=== PATIENT | female | born 1940 | race Caucasian/White ===

== ENCOUNTER 2016-12-03 20:29 | Inpatient (IN) | payer MEDICARE, OTHER ==
[~2016-12-03] VITALS: Ht 162.6 cm; Wt 79.9 kg
[~2016-12-03 20:29] MED LIST: BACT800T5 PO; LEVO100T4 PO
[2016-12-03] MEDS ORDERED: SODIUM CHLOR 0.9% 1000 ML INJ 1,000 ML IV SCH (22:06)
--- NOTE | 2016-12-03 22:12 | PD ---
HPI Chief Complaint: AMS Time Seen by Provider: 22:11 Travel History International Travel<30 days: No Contact w/Intl Traveler<30days: No History of Present Illness HPI 76-year-old female presents to the emergency department via EMS for evaluation of altered mental status. Apparently, the patient was found naked on her front porch. Her house is disheveled and unlivable. Apparently EMS states that EMS was called out last week and she was taken to another hospital. Apparently, she was discharged. The patient lives alone. The patient is alert. She is oriented to self only. The patient states that she has no medical problems and takes no medications. However, the patient is not a reliable historian. She denies any complaints at this time. The patient denies any headache. No chest or shortness breath. No abdominal pain. No nausea, vomiting, diarrhea. Patient is disheveled. She has dirt on on her legs and her arms. PFSH Past Medical History Genitourinary: Yes (urinary incontinence) Thyroid Disease: Yes Social History Alcohol Use: Yes (BEER DAILY) Tobacco Use: No Substance Use: No Allergies-Medications (Allergen,Severity, Reaction): Coded Allergies: No Known Allergies (Unverified , 03/04/16) Reported Meds & Prescriptions Reported Meds & Active Scripts Active Bactrim DS (Sulfamethoxazole-Trimethoprim DS) 1 Tab Tab 1 Tab PO BID 5 Days Reported Levothyroxine 100 mcg (Levothyroxine Sodium) 100 Mcg Tab 100 Mcg PO DAILY Review of Systems Except as stated in HPI: all other systems reviewed are Neg Physical Exam Narrative GENERAL: Well-nourished, well-developed female patient, afebrile. Patient is alert and oriented to self only. SKIN: Focused skin assessment warm/dry. Patient is disheveled with dirt on her extremities. HEAD: Normocephalic. Atraumatic. EYES: No scleral icterus. No injection or drainage. NECK: Supple, trachea midline. No JVD or lymphadenopathy. CARDIOVASCULAR: Regular rate and rhythm without murmurs, gallops, or rubs. RESPIRATORY: Breath sounds equal bilaterally. No accessory muscle use. Lungs sounds are clear to auscultation. GASTROINTESTINAL: Abdomen soft, non-tender, nondistended. MUSCULOSKELETAL: No cyanosis, or edema. Patient follows commands. Bilateral upper and lower extremity strength 5/5. All extremities are neurovascularly intact. BACK: Nontender without obvious deformity. No CVA tenderness. Data Data Orders Electrocardiogram (12/03/16 22:06) Ammonia (12/03/16 22:06) Complete Blood Count With Diff (12/03/16 22:06) Comprehensive Metabolic Panel (12/03/16 22:06) Creatine Kinase (Cpk) (12/03/16 22:06) Prothrombin Time / Inr (Pt) (12/03/16 22:06) Act Partial Throm Time (Ptt) (12/03/16 22:06) Troponin I (12/03/16 22:) Urinalysis - C+S If Indicated (12/03/16 22:06) Lactic Acid Sepsis Protocol (12/03/16 22:06) Blood Culture (12/03/16 22:) Chest, Single Ap (12/03/16 22:) Ct Brain W/O Iv Contrast(Rout) (12/03/16 22:06) Blood Glucose (12/03/16 22:06) Ecg Monitoring (12/03/16 22:) Iv Access Insert/Monitor (12/03/16 22:06) Oximetry (12/03/16 22:06) Sodium Chloride 0.9% Flush (Ns Flush) (12/03/16 22:15) Sodium Chlor 0.9% 1000 Ml Inj (Ns 1000 M (12/03/16 22:06) Drug Screen, Random Urine (12/03/16 22:06) Alcohol (Ethanol) (12/03/16 22:06) Cath For Specimen (12/03/16 22:06) Magnesium (Mg) (12/03/16 22:06) MDM Medical Decision Making Medical Screen Exam Complete: Yes Emergency Medical Condition: Yes Medical Record Reviewed: Yes Interpretation(s) chest x-ray - CONCLUSION: Normal examination. Differential Diagnosis Intracranial abnormality versus electrolyte abnormality versus pneumonia versus sepsis versus UTI versus dehydration Narrative Course 76-year-old female presents to the emergency department via EMS for altered mental status. Patient is placed under [place] act by police. Patient is a poor historian and no family is available. EKG, CBC, CMP, CK, Troponin, Lactic acid , Ammonia, Magnesium, PTT, PT/INR, UA, UDS, alcohol level, chest x-ray, CT of the brain are ordered and pending. Patient is given NS 1 liter IV bolus. Chest x-ray is normal. Dr. Arreguin will resume care and disposition of patient. Michelle Robertson Dec 03, 2016 22:12
[2016-12-03] MEDS ORDERED: SODIUM CHLORIDE 0.9% FLUSH 5 ML FLUSH IV FLUSH PRN (22:15)
--- NOTE | 2016-12-03 22:34 | RADRPT ---
EXAM DATE/TIME: 12/03/2016 22:07 [facility] COMPARISON: No previous studies available for comparison. INDICATIONS : Altered mental status. MEDICAL HISTORY : None. SURGICAL HISTORY : None. ENCOUNTER: Initial ACUITY: 1 day PAIN SCORE: 0/10 LOCATION: Bilateral chest FINDINGS: A single view of the chest demonstrates the lungs to be symmetrically aerated without evidence of mas s, infiltrate or effusion. The cardiomediastinal contours are unremarkable. Osseous structures are intact. CONCLUSION: Normal examination. Kentrell Key MD on December 03, 2016 at 22:32 Board Certified Radiologist. This report was verified electronically.
[2016-12-03 22:53] LABS: AUTOMATED NEUTROPHIL # 10.3 TH/MM3 (1.8-7.7); BASOPHIL # 0.1 TH/MM3 (0-0.2); BASOPHIL % 0.6 % (0.0-2.0); EOSINOPHIL # 0.2 TH/MM3 (0-0.4); EOSINOPHIL % 1.3 % (0.0-4.0); HEMATOCRIT 38.6 % (35.0-46.0); HEMO FLAGS DIFF FINAL; LYMPH % 12.6 % (9.0-44.0); LYMPHOCYTE # 1.7 TH/MM3 (1.0-4.8); MEAN CELL VOLUME 84.2 FL (80.0-100.0); MEAN CORPUSCULAR HEMOGLOBIN 27.6 PG (27.0-34.0); MEAN CORPUSCULAR HGB CONC 32.8 % (32.0-36.0); MONO % 9.6 % (0.0-8.0); NEUT % 75.9 % (16.0-70.0); PLATELET COUNT 292 TH/MM3 (150-450); RED BLOOD COUNT 4.58 MIL/MM3 (4.00-5.30); RED CELL DISTRIBUTION WIDTH 14.6 % (11.6-17.2); WHITE BLOOD COUNT 13.6 TH/MM3 (4.0-11.0)
[2016-12-03 23:02] LABS: AMPHETAMINE, URINE NEG (NEG); BARBITURATES, URINE NEG (NEG); COCAINE, URINE NEG (NEG)
[2016-12-03 23:04] LABS: APTT (PATIENT) 24.3 SEC (24.3-30.1)
[2016-12-03 23:12] LABS: BACTERIA, URINE MANY /hpf; BLOOD, URINE MOD (NEG); GLUCOSE,URINE NEG (NEG); HYALINE CAST, URINE 7 /lpf (RARE); KETONE, URINE 150 mg/dL (NEG); MUCUS URINE FEW /lpf (OCC); PH, URINE 5.5 (5.0-8.5); SQUAMOUS EPITHELIAL CELL URINE 2 /hpf (0-5); URINE COLOR YELLOW (YELLW/STRAW)
[2016-12-03 23:14] LABS: COMMENT (UR) CATH-CULTURE IND; CULTURE IF INDICATED CATH CULTURE IND; NITRITE,URINE POS (NEG)
[2016-12-03 23:15] LABS: ANION GAP 9 MEQ/L (5-15); AST (GOT) 42 U/L (15-37); BICARBONATE 22.8 MEQ/L (21.0-32.0); BLOOD UREA NITROGEN 22 MG/DL (7-18); CHLORIDE 109 MEQ/L (98-107); GLOMERULAR FILTRATION RATE 63 ML/MIN (>89); MAGNESIUM 2.2 MG/DL (1.5-2.5); POTASSIUM 4.4 MEQ/L (3.5-5.1); SODIUM (NA) 141 MEQ/L (136-145)
[2016-12-03 23:16] LABS: ALT (GPT) 33 U/L (10-53)
[2016-12-03 23:20] LABS: ALKALINE PHOSPHATASE 75 U/L (45-117); CREATINE KINASE 384 U/L (26-192); TOTAL BILIRUBIN ADULT 0.5 MG/DL (0.2-1.0)
[2016-12-03 23:22] VITALS: BP 138/66; PULSE 99; RESP 16; TEMP 98.5; O2SAT 99
[2016-12-03] MEDS ORDERED: LEVO100T5 PO (23:22)
[2016-12-03 23:36] LABS: CKMB 3.8 NG/ML (0.5-3.6)
[2016-12-03] MEDS ORDERED: cefTRIAXone INJ 1,000 MG in SODIUM CHLORIDE 0.9% INJ 100 ML IV ONE (23:45)
--- NOTE | 2016-12-03 23:45 | PD ---
Physical Exam Date Seen by Provider: Dec 03, 2016 Time Seen by Provider: 23:43 Narrative 76-year-old female came to the emergency room brought by EMS for being found naked outside her porch. Patient was confused but pleasant. She was covered in her own excreta and smelling bad. It did not look like she took care of herself very well for quite some time. Patient was seen by the nurse practitioner and I'm supervising her. Blood test results of back and UA and patient has leukocytosis and UTI. She is getting IV fluid and I have ordered 1 g of IV Rocephin. Patient needs to be admitted and then eventually be placed since currently does not seem like she is in a condition to take care of herself. There has not been any family member or friends who have come in. Awaiting for the hospitalist to call back. Data Data Last Documented VS Vital Signs Date Time Temp Pulse Resp B/P Pulse Ox O2 Delivery O2 Flow Rate FiO2 12/03/16 23:22 98.5 99 16 138/66 99 Orders Electrocardiogram (12/03/16 22:06) Ammonia (12/03/16 22:06) Complete Blood Count With Diff (12/03/16 22:06) Comprehensive Metabolic Panel (12/03/16 22:06) Creatine Kinase (Cpk) (12/03/16 22:06) Prothrombin Time / Inr (Pt) (12/03/16 22:06) Act Partial Throm Time (Ptt) (12/03/16 22:06) Troponin I (12/03/16 22:06) Urinalysis - C+S If Indicated (12/03/16 22:06) Lactic Acid Sepsis Protocol (12/03/16 22:06) Blood Culture (12/03/16 22:06) Chest, Single Ap (12/03/16 22:06) Ct Brain W/O Iv Contrast(Rout) (12/03/16 22:06) Blood Glucose (12/03/16 22:06) Ecg Monitoring (12/03/16 22:06) Iv Access Insert/Monitor (12/03/16 22:06) Oximetry (12/03/16 22:06) Sodium Chloride 0.9% Flush (Ns Flush) (12/03/16 22:15) Sodium Chlor 0.9% 1000 Ml Inj (Ns 1000 M (12/03/16 22:06) Drug Screen, Random Urine (12/03/16 22:06) Alcohol (Ethanol) (12/03/16 22:06) Cath For Specimen (12/03/16 22:06) Magnesium (Mg) (12/03/16 22:06) Urine Culture (12/03/16 22:30) CKMB (12/03/16 22:35) CKMB% (12/03/16 22:35) Ceftriaxone Inj (Rocephin Inj) (12/03/16 23:45) Admit Order (Ed Use Only) (12/03/16 23:56) Labs Laboratory Tests Test 12/03/16 12/03/16 22:30 22:35 Urine Opiates Screen NEG Urine Barbiturates Screen NEG Urine Amphetamines Screen NEG Urine Benzodiazepines Screen NEG Urine Cocaine Screen NEG Urine Cannabinoids Screen NEG Urine Color YELLOW Urine Turbidity CLOUDY Urine pH 5.5 Urine Specific Lam[place] 1.025 Urine Protein 100 mg/dL Urine Glucose (UA) NEG mg/dL Urine Ketones 150 mg/dL Urine Occult Blood MOD Urine Nitrite POS Urine Bilirubin NEG Urine Urobilinogen LESS THAN 2.0 MG/DL Urine Leukocyte Esterase LARGE Urine RBC 49 /hpf Urine WBC /hpf Urine WBC Clumps MANY Urine Squamous Epithelial 2 /hpf Cells Urine Bacteria MANY /hpf Urine Hyaline Casts 7 /lpf Urine Mucus FEW /lpf Microscopic Urinalysis Comment CATH-CULTURE IND Prothrombin Time 11.0 SEC Prothromb Time International 1.0 RATIO Ratio Activated Partial 24.3 SEC Thromboplast Time Sodium Level 141 MEQ/L Potassium Level 4.4 MEQ/L Chloride Level 109 MEQ/L Carbon Dioxide Level 22.8 MEQ/L Anion Gap 9 MEQ/L Blood Urea Nitrogen 22 MG/DL Creatinine 0.88 MG/DL Estimat Glomerular Filtration 63 ML/MIN Rate Random Glucose 90 MG/DL Lactic Acid Level 1.3 mmol/L Calcium Level 8.9 MG/DL Magnesium Level 2.2 MG/DL Total Bilirubin 0.5 MG/DL Aspartate Amino Transf 42 U/L (AST/SGOT) Alanine Aminotransferase 33 U/L (ALT/SGPT) Alkaline Phosphatase 75 U/L Ammonia 12 MCMOL/L Total Creatine Kinase 384 U/L Creatine Kinase MB 3.8 NG/ML Creatine Kinase MB % 1.0 % Troponin I LESS THAN 0.02 NG/ML Total Protein 7.6 GM/DL Albumin 3.2 GM/DL Ethyl Alcohol Level LESS THAN 3 MG/DL White Blood Count 13.6 TH/MM3 Red Blood Count 4.58 MIL/MM3 Hemoglobin 12.6 GM/DL Hematocrit 38.6 % Mean Corpuscular Volume 84.2 FL Mean Corpuscular Hemoglobin 27.6 PG Mean Corpuscular Hemoglobin 32.8 % Concent Red Cell Distribution Width 14.6 % Platelet Count 292 TH/MM3 Mean Platelet Volume 8.3 FL Neutrophils (%) (Auto) 75.9 % Lymphocytes (%) (Auto) 12.6 % Monocytes (%) (Auto) 9.6 % Eosinophils (%) (Auto) 1.3 % Basophils (%) (Auto) 0.6 % Neutrophils # (Auto) 10.3 TH/MM3 Lymphocytes # (Auto) 1.7 TH/MM3 Monocytes # (Auto) 1.3 TH/MM3 Eosinophils # (Auto) 0.2 TH/MM3 Basophils # (Auto) 0.1 TH/MM3 CBC Comment DIFF FINAL Differential Comment Thyroid Stimulating Hormone 5.960 uIU/ML 3rd Gen [facility] Supervised Visit with SOBIA: Yes Diagnosis Primary Impression: UTI (urinary tract infection) Qualified Code: N39.0 - Urinary tract infection without hematuria, site unspecified Additional Impression: Altered mental status Qualified Code: R41.0 - Disorientation Admitting Information Admitting Physician Requests: Admit Scripts Walker with Front Wheels 1 Mis Mis #1 EA .ROUTE DIRECTED Ref 0 Prov:Darlene Martel MD R1 12/05/16 Ciprofloxacin 500 Mg [id number] Mg PO BID #10 TAB Ref 0 Prov:Darlene Martel MD R1 12/05/16 Jj Arreguin MD Dec 03, 2016 23:45
--- NOTE | 2016-12-03 23:55 | HHI.HP ---
[facility] Service Family Medicine Primary Care Physician Celine Mascorro MD Admission Diagnosis Diagnoses: International Travel<30 Days: No Contact w/Intl Traveler<30days: No Known Affected Area: No History of Present Illness Patient is a 76 year old female with past history of hypothyroidism who was brought to the ED (per ED note) by EMS after being found naked on her porch, covered in feces. She was confused when initially examined by ED physician. When examined by admitting team patient was A+Ox3 but took some effort to think of the correct answers. Patient was unsure why she was here tonight and did not recall what had occurred earlier to require her to be transported her. She complains of about 10 days of polyuria and dysuria with no report of hematuria. No complaint of pain in the back. She was scheduled to see her primary care provider Dr. Mascorro Sunday. No complaint of nausea, vomiting, fever, chills, headache, shortness of breath, chest pain, confusion, change in vision, weakness , or trouble walking. Review of Systems Constitutional: DENIES: Diaphoretic episodes, Fatigue, Fever, Chills, Dizziness , Change in appetite Endocrine: COMPLAINS OF: Polyuria, DENIES: Heat/cold intolerance, Polydipsia, Polyphagia Eyes: DENIES: Blurred vision, Diplopia, Eye inflammation, Eye pain, Vision loss , Photosensitivity, Double Vision Ears, nose, mouth, throat: DENIES: Nasal discharge, Oral lesions, Throat pain, Hoarseness, Ear Pain, Running Nose, Epistaxis, Sinus Pain Respiratory: COMPLAINS OF: Cough (Mild), DENIES: Apneas, Snoring, Wheezing, Hemoptysis, Sputum production, Shortness of breath Cardiovascular: DENIES: Chest pain, Palpitations, Syncope, Dyspnea on Exertion , PND, Lower Extremity Edema, Orthopnea, Claudication Gastrointestinal: DENIES: Abdominal pain, Black stools, Bloody stools, Constipation, Diarrhea, Nausea, Vomiting, Difficulty Swallowing, Anorexia Genitourinary: COMPLAINS OF: Urinary frequency, Dysuria, DENIES: Urgency, Hematuria Musculoskeletal: DENIES: Joint pain, Muscle aches Integumentary: DENIES: Rash Hematologic/lymphatic: DENIES: Bruising, Lymphadenopathy Neurologic: DENIES: Abnormal gait, Headache, Localized weakness, Speech Problems, Poor Balance Psychiatric: DENIES: Anxiety, Confusion, Agitation Past Family Social History Past Medical History Hypothyroidism Past Surgical History Right wrist surgery Lasik eye surgery Allergies: Coded Allergies: No Known Allergies (Unverified , 12/03/16) Family History None reported Social History drinks 1-2 beers or glasses of wine daily. Smoked 3 packs per day for 20 years, stopped 30 years ago Does not and has never used illicit drugs Physical Exam Vital Signs Vital Signs Date Time Temp Pulse Resp B/P Pulse Ox O2 Delivery O2 Flow Rate FiO2 12/03/16 23:22 98.5 99 16 138/66 99 Physical Exam GENERAL: This is a well-nourished, well-developed patient, in no apparent distress. SKIN: No rashes, ecchymoses or lesions. Cool and dry. Dry lips/mouth. HEAD: Atraumatic. Normocephalic. No temporal or scalp tenderness. EYES: Pupils equal round and reactive. Extraocular motions intact. No scleral icterus. No injection or drainage. ENT: Nose without bleeding, purulent drainage or septal hematoma. Throat without erythema, tonsillar hypertrophy or exudate. Uvula midline. Airway patent. NECK: Trachea midline. No JVD or lymphadenopathy. Supple, nontender, no meningeal signs. CARDIOVASCULAR: Regular rate and rhythm without murmurs, gallops, or rubs. Normal S1/S2 RESPIRATORY: Clear to auscultation. Breath sounds equal bilaterally. No wheezes , rales, or rhonchi. BACK: No costovertebral tenderness. GASTROINTESTINAL: Positive bowel sounds, abdomen soft, non-tender, nondistended. No hepato-splenomegaly, or palpable masses. No guarding. MUSCULOSKELETAL: Extremities without clubbing, cyanosis, or edema. No joint tenderness, effusion, or edema noted. No calf tenderness. NEUROLOGICAL: Awake and alert. Cranial nerves II through XII intact. Motor and sensory grossly within normal limits. Five out of 5 muscle strength in all muscle groups. Normal speech. Laboratory Laboratory Tests Test 12/03/16 12/03/16 22:30 22:35 Urine Color YELLOW Urine Turbidity CLOUDY Urine pH 5.5 Urine Specific [place] 1.025 Urine Protein 100 Urine Glucose (UA) NEG Urine Ketones 150 Urine Occult Blood MOD Urine Nitrite POS Urine Bilirubin NEG Urine Urobilinogen LESS THAN 2.0 Urine Leukocyte Esterase LARGE Urine RBC 49 Urine WBC Urine WBC Clumps MANY Urine Squamous Epithelial 2 Cells Urine Bacteria MANY Urine Hyaline Casts 7 Urine Mucus FEW Microscopic Urinalysis Comment CATH-CULTURE IND Urine Opiates Screen NEG Urine Barbiturates Screen NEG Urine Amphetamines Screen NEG Urine Benzodiazepines Screen NEG Urine Cocaine Screen NEG Urine Cannabinoids Screen NEG White Blood Count 13.6 Red Blood Count 4.58 Hemoglobin 12.6 Hematocrit 38.6 Mean Corpuscular Volume 84.2 Mean Corpuscular Hemoglobin 27.6 Mean Corpuscular Hemoglobin 32.8 Concent Red Cell Distribution Width 14.6 Platelet Count 292 Mean Platelet Volume 8.3 Neutrophils (%) (Auto) 75.9 Lymphocytes (%) (Auto) 12.6 Monocytes (%) (Auto) 9.6 Eosinophils (%) (Auto) 1.3 Basophils (%) (Auto) 0.6 Neutrophils # (Auto) 10.3 Lymphocytes # (Auto) 1.7 Monocytes # (Auto) 1.3 Eosinophils # (Auto) 0.2 Basophils # (Auto) 0.1 CBC Comment DIFF FINAL Differential Comment Prothrombin Time 11.0 Prothromb Time International 1.0 Ratio Activated Partial 24.3 Thromboplast Time Sodium Level 141 Potassium Level 4.4 Chloride Level 109 Carbon Dioxide Level 22.8 Anion Gap 9 Blood Urea Nitrogen 22 Creatinine 0.88 Estimat Glomerular Filtration 63 Rate Random Glucose 90 Lactic Acid Level 1.3 Calcium Level 8.9 Magnesium Level 2.2 Total Bilirubin 0.5 Aspartate Amino Transf 42 (AST/SGOT) Alanine Aminotransferase 33 (ALT/SGPT) Alkaline Phosphatase 75 Ammonia 12 Total Creatine Kinase 384 Creatine Kinase MB 3.8 Creatine Kinase MB % 1.0 Troponin I LESS THAN 0.02 Total Protein 7.6 Albumin 3.2 Ethyl Alcohol Level LESS THAN 3 Date/Time Procedure Status Source Growth 12/03/16 22:35 Aerobic Blood Culture Received Blood Peripheral Pending 12/03/16 22:35 Anaerobic Blood Culture Received Blood Peripheral Pending 12/03/16 22:30 Urine Culture Received Urine Clean Catch Pending Result Diagram: 12/03/16223412/03/162234 Assessment and Plan Assessment and Plan 76 year old female with history of hypothyroidism transported to the ED by EMS following being found naked and confused. Currently A+Ox3 but requires some effort when thinking of answers. Complained of dysuria and polyuria for 10 days. No nausea, vomiting, fever, chills, headache, change in vision, weakness, chest pain, shortness of breath. UA cloudy, +nitrite, Large LE. Normal CXR, CT Head. Code Status Full Problem List: (1) UTI (urinary tract infection) Status: Acute Plan: - Rocephin 1G Q24 - F/U Urine culture - F/U CBC - F/U BMP (2) Altered mental status Status: Acute Plan: - F/U CBC, BMP - F/U blood culture - Neuro checks q4 (3) Hypothyroidism Status: Chronic Plan: - FU TSH - Levothyroxine (4) FEN Status: Acute Plan: On maintenance fluids @ 115mls/hr Correct electrolytes as needed Full diet DVT prophylaxis - Lovenox Physician Certification 2 Midnight Certification Type: Admission for Inpatient Services Order for Inpatient Services The services are ordered in accordance with Medicare regulations or non- Medicare payer requirements, as applicable. In the case of services not specified as inpatient-only, they are appropriately provided as inpatient services in accordance with the 2-midnight benchmark. Estimated LOS (days): 2 2 days is the estimated time the patient will need to remain in the hospital, assuming treatment plan goals are met and no additional complications. Post-Hospital Plan: Home Problem Qualifiers (1) UTI (urinary tract infection): Qualified Code: N39.0 - Urinary tract infection without hematuria, site unspecified (2) Altered mental status: Qualified Code: R41.0 - Disorientation (3) Hypothyroidism: Qualified Code: E03.9 - Hypothyroidism, unspecified type Segun Tracy MD R1 Dec 03, 2016 23:55
[2016-12-04] VITALS (8 sets, daily range): BP systolic 142–157; BP diastolic 76–98; PULSE 86–99; RESP 17–18; TEMP 97.3–97.8; O2SAT 94–98
[2016-12-04] MEDS ORDERED: ONDANSETRON HCL 4 MG/2 ML VIAL IVP PRN (00:15)
[2016-12-04] MEDS ORDERED: ACETAMINOPHEN 325 MG TAB PO PRN (00:15)
[2016-12-04] MEDS ORDERED: NALOXONE HCL 0.4 MG/ML AMP IV PRN (00:15)
[2016-12-04] MEDS ORDERED: LACTULOSE SYRUP 20 GM/30 ML CUP PO PRN (00:15)
[2016-12-04] MEDS ORDERED: SODIUM CHLORIDE 0.9% FLUSH 10 ML FLUSH IV FLUSH PRN (00:15)
[2016-12-04] MEDS ORDERED: MAGNESIUM HYDROXIDE SUSP 30 ML CUP PO PRN (00:15)
[2016-12-04] MEDS ORDERED: BISACODYL 10 MG SUPP RECTAL PRN (00:15)
[2016-12-04] MEDS ORDERED: SENNOSIDES 8.6 MG TAB PO PRN (00:15)
--- NOTE | 2016-12-04 00:16 | RADRPT ---
EXAM DATE/TIME: 12/04/2016 00:04 [facility] COMPARISON: CT BRAIN W/O CONTRAST, March 04, 2016, 2:02. INDICATIONS : Altered mental status. RADIATION DOSE: 31.39 CTDIvol (mGy) MEDICAL HISTORY : Non-responsive. SURGICAL HISTORY : Non-responsive. ENCOUNTER: Initial ACUITY: 1 day PAIN SCALE: Non-responsive LOCATION: cranial TECHNIQUE: Multiple contiguous axial images were obtained of the head. Using automated exposure control and adj ustment of the mA and/or kV according to patient size, radiation dose was kept as low as reasonably a chievable to obtain optimal diagnostic quality images. DICOM format image data is available electro nically for review and comparison. FINDINGS: There is marked central and cortical atrophy with dilatation of ventricular and sulcal spaces. There is no parenchymal hemorrhage, acute infarction or mass lesion identified. There are no extra-axial fluid collections appreciated. The posterior fossa is unremarkable with midline fourth ventricle. T he portion of the orbits and paranasal sinuses visualized are unremarkable. CONCLUSION: Normal examination for a patient of this age. No interval change since February 2016. Kentrell Key MD on December 04, 2016 at 0:14 Board Certified Radiologist. This report was verified electronically.
[2016-12-04] MEDS: SODIUM CHLOR 0.9% 1000 ML INJ 1,000 ML IV SCH ×3 (00:41→18:26)
[2016-12-04] MEDS: ENOXAPARIN SODIUM 40 MG/0.4 ML SYRINGE SQ SCH (00:42)
[2016-12-04] MEDS: LEVOTHYROXINE SODIUM 100 MCG TAB PO SCH (05:47)
[2016-12-04] MEDS: DOCUSATE SODIUM 50 MG/SENNA 8.6 MG TAB PO SCH ×2 (08:44→21:26)
[2016-12-04] MEDS: SODIUM CHLORIDE 0.9% FLUSH 10 ML FLUSH IV FLUSH SCH ×2 (08:44→21:00)
--- NOTE | 2016-12-04 09:03 | HHI.FPPN ---
Subjective Remarks Daniela Nieto is a 76yo lady with h/o hypothyroidism and 02/2016 UTI with pansensitive E coli admitted for altered mental status after being found naked and covered in feces on her porch. She reported a 10 day history of urinary symptoms, with dysuria and increased frequency. No fevers. For further details, please see resident H&P. This morning, she reports she is feeling better. Dysuria has resolved. She understands that she was admitted for UTI. She knows name and place, but believes date is December 03, 2015. She then speaks about a recent admission to a mental health facility which can not be verified. ROS: No fevers, no chills. No nausea/vomiting. Dysuria has resolved. All other systems reviewed are negative. PMH/PSxH/SocHx/FamHx: Per resident H&P. Significant for: Hypothyroidism. UTI in 02/2016 positive for pansensitive E coli. R wrist surgery, lasik eye surgery. She denies family history of significance. Drinks 1-2 alcoholic drinks per day ( beer or wine); 60 pack year smoking hx, but quit 30 years ago. No recreational drug use. [place] Objective Vitals Vital Signs Date Time Temp Pulse Resp B/P Pulse Ox O2 Delivery O2 Flow Rate FiO2 12/04/16 04:42 97.7 86 17 146/76 96 12/04/16 01:30 97.3 95 17 154/78 96 12/04/16 00:38 98 12/03/16 23:22 98.5 99 16 138/66 99 I/O 12/03/16 12/03/16 12/03/16 12/04/16 12/04/16 12/04/16 07:00 15:00 23:00 07:00 15:00 23:00 Intake Total 240 ml Balance 240 ml Intake Oral 240 ml # Voids 2 Result Diagram: 12/03/16223412/03/162234 Objective Remarks GENERAL: in NAD, no resp distress, nontoxic. Sitting comfortably at bedside. HEENT: NCAT, EOMI, no scleral icterus, no conjunctival injection. MMM. NECK: Supple, no meningeal signs. CV: RRR, S1 S2. No murmurs. CHEST/PULM: CTAB, no crackles, no wheezes ABD/GI: +BS, soft, nontender, nondistended. EXT: 2+ DP pulses. No calf tenderness. No significant edema. NEURO: Awake, alert. Normal muscle tone. Alert and oriented x 2 (person and place) SKIN: No rashes, no jaundice. PSYCH: Mood and affect are appropriate. : No CVAT. A/P Assessment and Plan 76 year old female with history of hypothyroidism transported to the ED by EMS following being found naked and confused. Currently A+Ox3 but requires some effort when thinking of answers. Complained of dysuria and polyuria for 10 days. No nausea, vomiting, fever, chills, headache, change in vision, weakness, chest pain, shortness of breath. UA cloudy, +nitrite, Large LE. Normal CXR, CT Head. Attending Attestation Patient seen, examined, and discussed with resident team. The patient has been seen and examined. The chart and all resident notes have been reviewed. I agree that inpatient care is appropriate and that a two midnight stay is expected for the reasons documented in the resident history and physical. I have discussed this with the resident and certify the resident s order for inpatient admission. Problem List: (1) UTI (urinary tract infection) Status: Acute Plan: - Rocephin 1Gram Q24 12/03/16 --> - Await Urine culture - Lactic acid reassuring (2) Altered mental status Status: Acute Plan: Mental status is improving. Likely secondary to UTI. Continue to monitor. (3) Hypothyroidism Status: Chronic Plan: - TSH mildly elevated, but may be secondary to acute illness. - Levothyroxine - continue at home dose. Once acute illness is resolved, patient may benefit from recheck of TSH as an outpatient to ensure proper dosing of her thyroid replacement Problem Qualifiers (1) UTI (urinary tract infection): Qualified Code: N39.0 - Urinary tract infection without hematuria, site unspecified (2) Altered mental status: Qualified Code: R41.0 - Disorientation (3) Hypothyroidism: Qualified Code: E03.9 - Hypothyroidism, unspecified type Vani Ramirez MD Dec 04, 2016 09:03 unspecified (2) Altered mental status: Qualified Code: R41.0 - Disorientation (3) Hypothyroidism: Qualified Code: E03.9 - Hypothyroidism, unspecified type Vani Ramirez MD Dec 04, 2016 09:03 (2) Altered mental status: Qualified Code: R41.0 - Disorientation (3) Hypothyroidism: Qualified Code: E03.9 - Hypothyroidism, unspecified type Vani Ramirez MD Dec 04, 2016 09:03 Status: Acute Plan: On maintenance fluids @ 115mls/hr Correct electrolytes as needed Full diet DVT prophylaxis - Lovenox Problem Qualifiers (1) UTI (urinary tract infection): Qualified Code: N39.0 - Urinary tract infection without hematuria, site unspecified (2) Altered mental status: Qualified Code: R41.0 - Disorientation (3) Hypothyroidism: Qualified Code: E03.9 - Hypothyroidism, unspecified type Vani Ramirez MD Dec 04, 2016 09:03
--- NOTE | 2016-12-04 09:11 | HHI.DCPOC ---
Discharge Care Plan Diagnosis: (1) Altered mental status (2) UTI (urinary tract infection) (3) Hypothyroidism Goals to Promote Your Health * To prevent worsening of your condition and complications * To maintain your health at the optimal level Directions to Meet Your Goals Take your medications as prescribed Follow your dietary instruction Follow activity as directed Keep your appointments as scheduled Take your immunizations and boosters as scheduled If your symptoms worsen call your PCP, if no PCP go to Urgent Care Center or Emergency Room Smoking is Dangerous to Your Health. Avoid second hand smoke Call the 24-hour hour crisis hotline for domestic abuse at Jeny Theodore MD R2 Dec 04, 2016 09:11
--- NOTE | 2016-12-04 13:13 | EKG ---
Date Performed: 12/03/2016 Time Performed: 23:35:37 PTAGE: 76 years EKG: Sinus rhythm NORMAL ECG NO PREVIOUS TRACING DOCTOR: Baltazar Sims Interpretating Date/Time 12/04/2016 13:11:08
[2016-12-04] MEDS ORDERED: cefTRIAXone INJ 1,000 MG in SODIUM CHLORIDE 0.9% INJ 100 ML IV SCH (22:00)
[2016-12-05] MEDS: ENOXAPARIN SODIUM 40 MG/0.4 ML SYRINGE SQ SCH (00:11)
[2016-12-05 00:20] VITALS: BP 136/67; PULSE 83; RESP 17; TEMP 97.1; O2SAT 98
[2016-12-05] MEDS: LEVOTHYROXINE SODIUM 100 MCG TAB PO SCH (06:24)
[2016-12-05 08:00] VITALS: BP 154/95; PULSE 96; RESP 18; TEMP 96.3; O2SAT 100
[2016-12-05 08:51] LABS: AUTOMATED NEUTROPHIL # 4.3 TH/MM3 (1.8-7.7); BASOPHIL % 0.7 % (0.0-2.0); EOSINOPHIL # 0.4 TH/MM3 (0-0.4); HEMATOCRIT 35.5 % (35.0-46.0); HEMO FLAGS DIFF FINAL; LYMPH % 25.1 % (9.0-44.0); LYMPHOCYTE # 1.9 TH/MM3 (1.0-4.8); MEAN CELL VOLUME 84.5 FL (80.0-100.0); MEAN CORPUSCULAR HEMOGLOBIN 28.5 PG (27.0-34.0); MEAN CORPUSCULAR HGB CONC 33.7 % (32.0-36.0); NEUT % 58.2 % (16.0-70.0); PLATELET COUNT 249 TH/MM3 (150-450); RED CELL DISTRIBUTION WIDTH 14.9 % (11.6-17.2); WHITE BLOOD COUNT 7.5 TH/MM3 (4.0-11.0)
[2016-12-05] MEDS: DOCUSATE SODIUM 50 MG/SENNA 8.6 MG TAB PO SCH (09:00)
[2016-12-05 09:05] LABS: BICARBONATE 22.6 MEQ/L (21.0-32.0); POTASSIUM 3.7 MEQ/L (3.5-5.1)
[2016-12-05] MEDS: SODIUM CHLORIDE 0.9% FLUSH 10 ML FLUSH IV FLUSH SCH (09:57)
[2016-12-05] MEDS: SODIUM CHLOR 0.9% 1000 ML INJ 1,000 ML IV SCH (09:57)
[2016-12-05] MEDS ORDERED: CIPR500T2 PO (10:05)
--- NOTE | 2016-12-05 10:08 | HHI.FF ---
Face to Face Verification Diagnosis: (1) UTI (urinary tract infection) (2) Altered mental status Physical Therapy Order: Evaluate and Treat Home Health Nursing Order: Medical education I have seen patient Daniela Nieto on 12/05/16. My clinical findings support the need for the requested home health care services because: Deconditioned w/ increased weakness Impaired cognition/judgement I certify that my clinical findings support that this patient is homebound because: Unsafe to leave home unassisted Darlene Martel MD R1 Dec 05, 2016 10:08
[2016-12-05] MEDS ORDERED: WALKER WHEELS/F1 MIS (10:10)
[2016-12-05 12:42] VITALS: BP 135/79; PULSE 108; RESP 18; TEMP 97.2; O2SAT 98
[2016-12-05 14:18] VITALS: O2SAT 97
--- NOTE | 2016-12-05 16:27 | HHI.FPPN ---
Subjective Remarks Daniela Nieto is a 76yo lady with h/o hypothyroidism and 02/2016 UTI with pansensitive E coli admitted for altered mental status and UTI workup and treatment. Patient is doing well. AOx3. Has no complaints, denies chest pain, SOB. Had an episode of diarrhea yesterday, but none since then. States she is concerned about being home without assistance. Is able to cook for herself but does not like to eat alot (eats one meal a day). Lives in home. Was admitted to a mental hospital a day before presenting to the hospital after being found walking on the side of the road by mounted police. Does not remember diagnosis. (Darlene Martel MD R1) Objective Vitals Vital Signs Date Time Temp Pulse Resp B/P Pulse Ox O2 Delivery O2 Flow Rate FiO2 12/05/16 14:18 97 12/05/16 12:42 97.2 108 18 135/79 98 12/05/16 08:00 96.3 96 18 154/95 100 12/05/16 01:45 Room Air 12/05/16 00:20 97.1 83 17 136/67 98 12/04/16 20:16 21 12/04/16 20:10 97.8 99 18 152/98 98 I/O 12/04/16 12/04/16 12/04/16 12/05/16 12/05/16 12/05/16 07:00 15:00 23:00 07:00 15:00 23:00 Intake Total 240 ml 1592 ml 852 ml Balance 240 ml 1592 ml 852 ml Intake Oral 240 ml 1080 ml 240 ml IV Total 512 ml 612 ml # Voids 2 13 12 # Bowel Movements 0 0 (Darlene Martel MD R1) Result Diagram: 12/05/16 0818 12/05/16 0818 Imaging Last Impressions Head CT 12/03/162205 Signed Impressions: Service Date/Time: Sunday, December 04, 2016 00:04 - CONCLUSION: Normal examination for a patient of this age. No interval change since February 2016. Kentrell Key MD Chest X-Ray 12/03/162205 Signed Impressions: Service Date/Time: Saturday, December 03, 2016 22:07 - CONCLUSION: Normal examination. Kentrell Key MD Objective Remarks GENERAL: in NAD, no resp distress, nontoxic. Sitting comfortably at bedside. HEENT: NCAT, EOMI, no scleral icterus, no conjunctival injection. MMM. CV: RRR, S1 S2. No murmurs. CHEST/PULM: CTAB, no crackles, no wheezes ABD/GI: +BS, soft, nontender, nondistended. EXT: No calf tenderness. No significant edema. NEURO: Awake, alert. Normal muscle tone. Alert and oriented x 3. SKIN: No rashes, no jaundice. PSYCH: Mood and affect are appropriate. : No CVAT. (Darlene Martel MD R1) A/P Assessment and Plan 76 year old female with history of hypothyroidism transported to the ED by EMS following being found naked and confused. Currently A+Ox3 but requires some effort when thinking of answers. Complained of dysuria and polyuria for 10 days. No nausea, vomiting, fever, chills, headache, change in vision, weakness, chest pain, shortness of breath. UA cloudy, +nitrite, Large LE. Normal CXR, CT Head. Patient shows improvement in mental status today. Labs wnl, culture positive for E.coli. Patient receiving adequate coverage with Rocephin 1g IV. Discharge Planning D/C today with PO Ciprofloxacin 500 mg BID (Darlene Martel MD R1) Attending Attestation Patient seen, examined, and discussed with Dr. Martel. I agree with assessment and management as documented and discussed with me. Pt feels back to normal. She is alert and oriented x 3, and expresses understanding regarding her hospitalization. She is accepting of home health services, which have been ordered. UCx with pansensitive e coli. Discharge home today on antibiotics as ordered. Greater than 30 minutes spent by me personally counselling and coordinating care at discharge. (Vani Ramirez MD) Problem List: (1) UTI (urinary tract infection) Status: Acute Plan: Patient shows improvement in symptoms. - Rocephin 1Gram Q24 12/03/16 --> - Urine Cx positive for E.coli (2) Altered mental status Status: Acute Plan: Mental status improved, AOx3. Most likely at baseline today. -Suspect patient may have underlying dementia. Will need to f/u with PCP. (3) Hypothyroidism Status: Chronic Plan: - Levothyroxine - continue at home dose. - f/u outpatient (4) FEN Status: Acute Plan: FEN: Regular diet DVT prophy: Lovenox Code: FULL dispo: today (Darlene Martel MD R1) Problem Qualifiers (1) UTI (urinary tract infection): Qualified Code: N39.0 - Urinary tract infection without hematuria, site unspecified (2) Altered mental status: Qualified Code: R41.0 - Disorientation (3) Hypothyroidism: Qualified Code: E03.9 - Hypothyroidism, unspecified type Darlene Martel MD R1 Dec 05, 2016 16:27 Vani Ramirez MD Dec 05, 2016 20:17
--- NOTE | 2016-12-05 16:45 | HHI.DS ---
Darlene Martel MD R1 12/05/16 1645: Discharge Summary Admission Date Dec 03, 2016 at 23:58 Discharge Date: Dec 05, 2016 Admitting Diagnosis UTI, AMS (1) UTI (urinary tract infection) Diagnosis: Principal Plan: Patient shows improvement in symptoms. - Rocephin 1Gram Q24 12/03/16 --> - Urine Cx positive for E.coli (2) Altered mental status Diagnosis: Principal Plan: Mental status improved, AOx3. Most likely at baseline today. -Suspect patient may have underlying dementia. Will need to f/u with PCP. (3) Hypothyroidism Diagnosis: Secondary Plan: - Levothyroxine - continue at home dose. - f/u outpatient (4) FEN Diagnosis: Secondary Plan: FEN: Regular diet DVT prophy: Lovenox Code: FULL dispo: today Brief History Patient is a 76 year old female with past history of hypothyroidism who was brought to the ED (per ED note) by EMS after being found naked on her porch, covered in feces. She was confused when initially examined by ED physician. When examined by admitting team patient was A+Ox3 but took some effort to think of the correct answers. Patient was unsure why she was here tonight and did not recall what had occurred earlier to require her to be transported her. She complains of about 10 days of polyuria and dysuria with no report of hematuria. No complaint of pain in the back. She was scheduled to see her primary care provider Dr. Mascorro Sunday. No complaint of nausea, vomiting, fever, chills, headache, shortness of breath, chest pain, confusion, change in vision, weakness , or trouble walking. CBC/BMP: 12/05/16 0818 12/05/16 0818 Significant Findings Laboratory Tests Test 12/03/16 12/03/16 12/05/16 22:30 22:35 08:18 Urine Turbidity CLOUDY (CLEAR) Urine Protein 100 mg/dL (NEG-TRACE) Urine Ketones 150 mg/dL (NEG) Urine Occult Blood MOD (NEG) Urine Nitrite POS (NEG) Urine Leukocyte Esterase LARGE (NEG) Urine RBC 49 /hpf (0-3) Urine WBC Clumps MANY (NONE) Urine Bacteria MANY /hpf (NONE) Urine Mucus FEW /lpf (OCC) Chloride Level 109 MEQ/L 110 MEQ/L (98-107) (98-107) Blood Urea Nitrogen 22 MG/DL (7-18) Estimat Glomerular Filtration 63 ML/MIN (>89) Rate Aspartate Amino Transf 42 U/L (15-37) (AST/SGOT) Total Creatine Kinase 384 U/L (26-192) Creatine Kinase MB 3.8 NG/ML (0.5-3.6) Troponin I LESS THAN 0.02 NG/ML (0.02-0.05) Albumin 3.2 GM/DL (3.4-5.0) White Blood Count 13.6 TH/MM3 (4.0-11.0) Neutrophils (%) (Auto) 75.9 % (16.0-70.0) Monocytes (%) (Auto) 9.6 % (0.0-8.0) 11.0 % (0.0-8.0) Neutrophils # (Auto) 10.3 TH/MM3 (1.8-7.7) Monocytes # (Auto) 1.3 TH/MM3 (0-0.9) Thyroid Stimulating Hormone 5.960 uIU/ML 3rd Gen (0.358-3.740) Eosinophils (%) (Auto) 5.0 % (0.0-4.0) PE at Discharge GENERAL: in NAD, no resp distress, nontoxic. Sitting comfortably at bedside. HEENT: NCAT, EOMI, no scleral icterus, no conjunctival injection. MMM. CV: RRR, S1 S2. No murmurs. CHEST/PULM: CTAB, no crackles, no wheezes ABD/GI: +BS, soft, nontender, nondistended. EXT: No calf tenderness. No significant edema. NEURO: Awake, alert. Normal muscle tone. Alert and oriented x 3. SKIN: No rashes, no jaundice. PSYCH: Mood and affect are appropriate. : No CVAT. Hospital Course 76 year old female with history of hypothyroidism transported to the ED by EMS following being found naked and confused.Did not know where she was, had to think of answers. She complains of about 10 days of polyuria and dysuria with no report of hematuria, appeared dehydrated. Admitted for UTI and AMS. U/A was ordered in the ED. Was positive for nitrite and large LE. Given Rocephin 1G Q24H and IVF. Urine cx, CBC, and BMP ordered, patient placed on neuro checks. Urine culture found to be positive for E.coli. WBC count was found to be elevated, and TSH levels found to be slightly elevated, likely from stress. After two days, WBC count reached normal levels, and patient showed improvement in mental status. Was alert and oriented to person, place, and date. Speech was also [facility] more logical. Patient explained to team that she lives alone in an home but was admitted to "mental hospital" a day before admission to hospital after being found walking along the side of the road by police. She remembered that she told police "she was going to the library." Did not remember what lead up to event, diagnosis at [facility], or course of hospitalization. Stated she does not think she can take adequate care of herself. Was d/c'd with home with home health. Given PO Ciprofloxacin 500 mg BID for a course of 5 days and encouraged to f/u with PCP. Pt Condition on Discharge: Stable Discharge Disposition: Disch w/ Home Health Serv Discharge Instructions DIET: Follow Instructions for: As Tolerated, No Restrictions Activities you can perform: Regular-No Restrictions Follow up Referrals: PCP Follow-up - 1 Week New Medications: Ciprofloxacin (Ciprofloxacin) 500 Mg Tab 500 MG PO BID Infection #10 Ref 0 TAB Walker with Front Wheels (Walker with Front Wheels) 1 Mis Mis 1 EA .ROUTE DIRECTED #1 Ref 0 EA Continued Medications: Levothyroxine (Levothyroxine) 100 Mcg Tab 100 MCG PO DAILY Thyroid #30 Ref 0 TAB Vani Ramirez MD 12/07/162114: Discharge Summary CBC/BMP: 12/05/1618 12/05/16 0818 Hospital Course Correction: Patient reports she is able to care for herself in her trailer, but would welcome home health PT to check on her and help. A walker to be provided as well. She also reports she has neighbors who will help her as well. Discharge Instructions Follow up Referrals: PCP Follow-up - 1 Week New Medications: Ciprofloxacin (Ciprofloxacin) 500 Mg Tab 500 MG PO BID Infection #10 Ref 0 TAB Walker with Front Wheels (Walker with Front Wheels) 1 Mis Mis 1 EA .ROUTE DIRECTED #1 Ref 0 EA Continued Medications: Levothyroxine (Levothyroxine) 100 Mcg Tab 100 MCG PO DAILY Thyroid #30 Ref 0 TAB Darlene Martel MD R1 Dec 05, 2016 16:45 Vani Ramirez MD Dec 07, 2016 21:15
== END 2016-12-05 15:31 | disposition home health service (06) | DRG 690 ==
LOC: NEPC 20:29 → NEDA 23:58 → N06A 12-04 01:30
PROVIDERS: ADMIT Family Medicine; ATTEND Family Medicine
DX: N39.0 Urinary tract infection, site not specified (principal); B96.20 Unspecified Escherichia coli [E. coli] as the cause of diseases classified elsewhere; E03.9 Hypothyroidism, unspecified; R41.82 Altered mental status, unspecified; Z87.891 Personal history of nicotine dependence
CPT/HCPCS: 70450; 71010; 80048; 80053; 80307; 81001; 82140; 82550; 82552; 83605; 83735; 84443; 84484; 85025; 85610; 85730; 87040; 87077; 87086; 87186; 93005; J0696; J1650; J7030; P9612